=== PATIENT | female | born 1960 | race Caucasian/White ===

== ENCOUNTER → 2020-07-26 | Outpatient (CLI) | payer BC ==
--- NOTE | 2020-07-27 08:21 | KCIC ---
XR SHOULDER_RIGHT 2+ VIEWS DATE: 07/26/2020 1:35 PM INDICATION: CHRONIC RT SHOULDER PAIN, STIFFNESS, STEROID INJECTION HAS HELPED COMPARISON: None. FINDINGS: Bones: There is no acute fracture. Joints: Mild degenerative changes of the acromioclavicular joint. Slightly inferior subluxation of t he humeral head relative to the glenoid. Miscellaneous: No abnormal soft tissue calcifications in the shoulder. IMPRESSION: 1. No acute osseous abnormality. 2. Slight inferior subluxation of the humeral head relative to the glenoid, which can be seen with gl enohumeral joint effusion. Electronically signed by: Mil Fitzpatrick MD (07/27/2020 8:18 AM) [id number]
== END ==
LOC: KCIC 13:18
PROVIDERS: ATTEND Family Medicine
DX: M19.011 Primary osteoarthritis, right shoulder (principal)
CPT/HCPCS: 73030